=== PATIENT | female | born 1925 | race Caucasian/White ===

== ENCOUNTER → 2016-07-10 | Outpatient (CLI) | payer OTHER | LOC: BMCIMAGING 10:51 | PROVIDERS: ATTEND Internal Medicine | DX: M25.551 Pain in right hip (principal); M16.0 Bilateral primary osteoarthritis of hip; M43.16 Spondylolisthesis, lumbar region; R05 Cough ==

== ENCOUNTER → 2016-12-05 | Outpatient (CLI) | payer OTHER | LOC: BMCIMAGING 14:20 | PROVIDERS: ATTEND Internal Medicine | DX: R05 Cough (principal); R06.02 Shortness of breath; R91.8 Other nonspecific abnormal finding of lung field ==

== ENCOUNTER 2016-12-31 18:02 | Emergency (ER) | payer OTHER ==
[2016-12-31 18:13] VITALS: BP 163/85; PULSE 77; RESP 16; TEMP 97.7; O2SAT 96
--- NOTE | 2016-12-31 18:34 | EDPHY ---
H & P Stated Complaint: head lac HPI/ROS: CHIEF COMPLAINT: Scalp laceration HISTORY OF PRESENT ILLNESS: Patient reports by EMS with complaints of posterior scalp laceration. She says that she was trying to help a friend at her residence who had just fallen and injured the leg. When she did so the door closed head on the back of her head. She sustained a laceration when this occurred. No loss of consciousness. She now has no headache or neck pain. She reports moderate bleeding from the laceration. There is no injury anywhere else on her person. No nausea or vomiting. No dizziness. No change in vision. She does take aspirin but no other anticoagulants. No other associated complaints or modifying factors TIME OF INJURY: Less than 1 hour prior to arrival TETANUS STATUS: Up-to-date less than 10 years ago REVIEW OF SYSTEMS: Ten systems reviewed and are negative unless otherwise noted in the HPI EXAMINATION General Appearance: Alert, no distress Head: normocephalic. There is an occipital scalp laceration with clotted blood surrounded. No pulsatile blood flow. No Bolanos sign. No raccoon eyes. Cardiovascular: Pulses normal throughout. Brisk cap refill. Systolic murmur. Regular rate rhythm. Neurological: GCS 15. A&O, no focal deficits. sensory symmetric, strength symmetric Skin: Warm and dry, no rash. Posterior scalp laceration measuring approximately 3.5 cm. No exposure of the galea. Actively bleeding Extremities: Nontender, no pedal edema. Range of motion is symmetric in all limbs. DIFFERENTIAL DIAGNOSES: Including but not limited to scalp laceration, intracranial hemorrhage, fracture , contusion, cervical sprain, cervical fracture MDM: 6:20 p.m. Mechanical trauma to the back of the head with posterior scalp laceration. No obvious injury elsewhere. Given the patient's age and injury, order CT scans of the head and cervical spine. She is in no acute distress. She is neuro intact. 7:00 p.m. Notified by ER die maintenance technician that the wound appears to have a small area pulsatile blood flow. I did examine the wound. The scalp does have a very small, superficial capillary area of bleeding. This is easily hemostasis with pressure but than rebleed when released. I have administered 1% lidocaine with epinephrine, 5 mL as. We will irrigate and re-evaluate. 7:05 p.m. Notified by radiologist Dr. Mcgovern regarding CT scans. There are chronic changes of the head and cervical spine but no acute findings. 7:35 p.m. Wound has been copiously irrigated. There is still moderate bleeding but no obvious pulsatile blood flow. I have closed the wound with 6 karri without complication. We will apply a dressing and monitor. 8:10 p.m. I have re-evaluated the patient. There does appear to be good hemostasis of the scalp laceration at this time. Hemoglobin is normal. She is awake and alert no acute distress. CT scans are negative for acute findings. Do feel she is stable for discharge home. She will go back to her assisted living. She will follow up with primary care physician and return here or there in 10 days for staple removal. ED precautions discussed. She is comfortable this plan and discharged home stable condition. Her son is here with her and is driving her back to her residence. He is also comfortable this plan. PROCEDURE: Laceration repair Consent: Verbal Location: Occipital scalp Length of repair: Complexity: Complex Layer involvement: Single Anesthesia: Local, 1% lidocaine with epinephrine, 7 miles Irrigation: Extensive Debridement: None Procedure description: Following good anesthesia, the wound was copiously irrigated. Wound bed was explored and there is no foreign body noted. Wound borders were approximated well with good hemostasis. Tolerated well without complication. Suture/Staple material: Karri time 6 Wound care: Routine as discussed Suture/Staple removal: Days SUTURE STAPLE REMOVAL: Ten days ED Precautions: Worsening pain. Erythema, edema, cyanosis, pallor, paresthesia or anesthesia. SUPERVISION: This patient was independently evaluated without direct examination by the attending physician. Case was discussed with attending physician. 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, hypothyroid, restless leg syn., kidney stones, GERD, - Social History Smoking Status: Never smoked Constitutional: Initial Vital Signs Temperature (C) 97.7 F 12/31/16 18:11 Heart Rate 77 12/31/16 18:11 Respiratory Rate 16 12/31/16 18:11 Blood Pressure 163/85 H 12/31/16 18:11 O2 Sat (%) 96 12/31/16 18:11 O2 Delivery Mode Room Air Allergies/Adverse Reactions: diazepam [From Valium] Allergy (Verified 11/30/15 11:14) penicillin Allergy (Verified 11/30/15 11:14) Home Medications: Medication Instructions Recorded Ergocalciferol [Vitamin D2 (*)] 50,000 unit PO Q14D 12/06/14 LEVETIRACETAM [Keppra 750 mg] 750 mg PO DAILY 12/06/14 Levothyroxine [Synthroid 75 mcg 75 mcg PO DAILY06 12/06/14 (*)] Menthol/Camphor [Sarna] 1 isha TP HS PRN 12/06/14 PE/Shark Liver/Gly/Pet,Wh 1 isha MD PRN PRN 12/06/14 [Preparation H Cream (*)] Tears/Hypromellose [Natural 1 drop EACHEYE DAILY PRN 12/06/14 Balance] buPROPion SR [Wellbutrin 100mg SR 100 mg PO BID 12/06/14 (*)] rOPINIRole HCL [Requip 1mg (*)] 1 mg PO HS 12/06/14 Acetaminophen [Tylenol 325mg (*)] 650 mg PO Q4 PRN 03/10/15 Aspirin EC [Aspirin EC 81 mg (*)] 81 mg PO DAILY 03/10/15 Calcium Carbonate [Tums 500MG (*)] 500 mg PO Q4 PRN 03/10/15 Famotidine [Pepcid 20 MG (*)] 20 mg PO DAILY PRN 03/10/15 Propylene Glycol/Peg 400/Pf 1 each EACHEYE QID PRN 03/10/15 [Systane 0.3-0.4% Eye Drops] levETIRAcetam [Keppra 500 mg (*)] 500 mg PO HS 03/10/15 Ipratropium/Albuterol [Duoneb (*)] 3 ml IH QID #0 deyvial 04/11/16 Oseltamivir Phosphate [Tamiflu 30 mg PO BIDMEAL #0 ml 04/11/16 Oral Suspension] guaiFENesin [Mucinex 600 MG (*)] 1,200 mg PO BID #0 tab.er 04/11/16 guaiFENesin/CODEINE PHOS 10 ml PO Q6HRS PRN #0 udcup 04/11/16 [Robitussin AC] levOFLOXACIN [levAQUIN (*)] 750 mg PO Q48H #0 tab 04/11/16 Medical Decision Making - Diagnostics Imaging Results: Imaging Impressions Cervical Spine CT 12/31/16 18:16 Impression: 1. Elderly brain with diffuse atrophy and probable extensive white matter small vessel disease. 2. Negative for intracranial hemorrhage. 3. Left parieto-occipital scalp hematoma. CT Cervical Spine Without Contrast History: Trauma. Technique: Multislice helical CT through the cervical spine without contrast from the skull base to T1. Soft tissue and bone evaluation is performed. Sagittal and coronal reconstructions are obtained and reviewed. Dose reduction techniques were utilized. Findings: Straightening of the normal cervical curvature, otherwise, the bone alignment is normal.. No fracture or dislocation is identified. The relationship between skull base and C1 is normal. The C1-C2 articulation demonstrates degenerative changes with sclerosis and loss of space between the odontoid process and the anterior arch of C1. The odontoid process is normal. The cervical thoracic junction is normal. Soft tissue window evaluation does not show evidence of epidural or prevertebral hematoma. Multilevel spondylosis is seen with disk space loss and bony spurring extending from C2-C3 to the C7-T1 level. There is also multilevel facet and uncovertebral arthropathy resulting in multilevel neural foraminal impingement and multilevel borderline canal stenosis. There is interbody fusion at the C4-C5 level. Apical pleural thickening is seen at the lung apices bilaterally unchanged from CT of the chest April 08, 2016. Impression: 1. Negative for fracture. 2. Multilevel degenerative changes. 3. See above report for additional findings. Results called and discussed with Alessio Huffman on 12/31/2016 at 19:05. Head CT 12/31/16 18:16 Impression: 1. Elderly brain with diffuse atrophy and probable extensive white matter small vessel disease. 2. Negative for intracranial hemorrhage. 3. Left parieto-occipital scalp hematoma. CT Cervical Spine Without Contrast History: Trauma. Technique: Multislice helical CT through the cervical spine without contrast from the skull base to T1. Soft tissue and bone evaluation is performed. Sagittal and coronal reconstructions are obtained and reviewed. Dose reduction techniques were utilized. Findings: Straightening of the normal cervical curvature, otherwise, the bone alignment is normal.. No fracture or dislocation is identified. The relationship between skull base and C1 is normal. The C1-C2 articulation demonstrates degenerative changes with sclerosis and loss of space between the odontoid process and the anterior arch of C1. The odontoid process is normal. The cervical thoracic junction is normal. Soft tissue window evaluation does not show evidence of epidural or prevertebral hematoma. Multilevel spondylosis is seen with disk space loss and bony spurring extending from C2-C3 to the C7-T1 level. There is also multilevel facet and uncovertebral arthropathy resulting in multilevel neural foraminal impingement and multilevel borderline canal stenosis. There is interbody fusion at the C4-C5 level. Apical pleural thickening is seen at the lung apices bilaterally unchanged from CT of the chest April 08, 2016. Impression: 1. Negative for fracture. 2. Multilevel degenerative changes. 3. See above report for additional findings. Results called and discussed with Alessio Huffman on 12/31/2016 at 19:05. - Data Points Laboratory Results: 12/31/16 20:00 POC Hgb 15.6 gm/dL gm/dL (12.6-16.3) POC Hct 46 % % (38-47) POC Sodium 142 mEq/L mEq/L (134-144) POC Potassium 3.4 mEq/L mEq/L (3.3-5.0) POC Chloride 99 mEq/L mEq/L (97-110) POC BUN 23 mg/dL mg/dL (7-23) POC Creatinine 1.1 mg/dL H mg/dL (0.6-1.0) POC Glucose 103 mg/dL H mg/dL (70-100) Point of Care Test Results: 12/31/16 20:00 POC Sodium 142 POC Potassium 3.4 POC Chloride 99 POC BUN 23 POC Creatinine 1.1 H POC Glucose 103 H Departure - Departure Disposition: Home, Routine, Self-Care Clinical Impression: Hematoma Scalp laceration Qualifiers: Encounter type: initial encounter Qualified Code(s): S01.01XA - Laceration without foreign body of scalp, initial encounter Closed head injury Qualifiers: Encounter type: initial encounter Qualified Code(s): S09.90XA - Unspecified injury of head, initial encounter Condition: Good Instructions: Head Injury (ED), Staple Care (ED) Additional Instructions: 1. Follow up with primary care physician or here in 10 days for staple removal 2. Return to ER immediately for any change in your symptoms or any headache, nausea vomiting Referrals: Patient,NotPresent [Unknown] - As per Instructions Ana María Haas DO [Doctor of Osteopathy] - As per Instructions
[2016-12-31] MEDS ORDERED: HYDROGEN PEROXIDE 236 ML BOTTLE TP ONE (19:10)
== END 2016-12-31 20:46 | disposition home or self-care (01) ==
LOC: EDUNIT#
PROC: 0HQ0XZZ Repair Scalp Skin, External Approach (ICD-10-PCS; principal; 2016-12-31)
DX: S01.01XA Laceration without foreign body of scalp, initial encounter (principal); Z79.82 Long term (current) use of aspirin; W19.XXXA Unspecified fall, initial encounter; Y92.009 Unspecified place in unspecified non-institutional (private) residence as the place of occurrence of the external cause
CPT/HCPCS: 82947-QW

== ENCOUNTER → 2017-01-10 | Outpatient (CLI) | payer OTHER | LOC: BMCIMAGING 16:12 | PROVIDERS: ATTEND Internal Medicine | DX: J40 Bronchitis, not specified as acute or chronic (principal) ==

== ENCOUNTER 2017-02-14 11:05 | Emergency (ER) | payer OTHER ==
[2017-02-14 11:17] VITALS: RESP 18; TEMP 97.5
--- NOTE | 2017-02-14 11:32 | EDPHY ---
General Narrative: CHIEF COMPLAINT: Fall, head injury, scalp lack HISTORY OF PRESENT ILLNESS: Patient complains of mechanical fall at her residence. This happened just prior to arrival. She arrives by EMS and is seen within 10 minutes of arrival. She reports that she fell in her bathroom, landing on a ceramic tile floor. She struck the back of her head. She had no loss of consciousness before or after the incident. No chest pain before after the incident. No nausea or vomiting. No changes in vision. She complains of a mild headache and scalp laceration. No neck pain. No chest or back pain. No abdominal pain. No injuries to the arms or legs. No other associated complaints or modifying factors. REVIEW OF SYSTEMS: Ten systems reviewed and are negative unless otherwise noted in the HPI PAST MEDICAL HISTORY: Reviewed from [place] documents. PAST SURGICAL HISTORY: Reviewed. SOCIAL HISTORY: Nonsmoker. Lives at the [place] in assisted living. FAMILY HISTORY: Noncontributory EXAMINATION General Appearance: Alert, no distress Head: normocephalic, posterior scalp lac with non active bleeding. No depression. No Bolanos sign. No raccoon eyes. Dried blood about the scalp and around the neck Eyes: Pupils equal and round, no conjunctival pallor or injection ENT, Mouth: Mucous membranes moist. Uvula midline. Airway widely patent Neck: C-collar in place. Trachea midline. No laceration Respiratory: Lungs are clear to auscultation. No wheezing, rhonchi or crackles Cardiovascular: Regular rate and rhythm. No murmur Gastrointestinal: Abdomen is soft and nontender Back: non-tender, no bony abnormalities. No crepitus, step-off or deformity Neurological: GCS 15. A&O, nonfocal, strength symmetric in all barrera. No pronator drift. Normal [id number] Skin: Warm and dry, no rash. Posterior scalp laceration Extremities: Nontender, no pedal edema. Moving all 4 extremities spontaneously. No ecchymosis or laceration to the extremities. Psychiatric: Mood and affect normal DIFFERENTIAL DIAGNOSES: Including but not limited to closed head injury, scalp laceration, intracranial hemorrhage, skull fracture, cervical sprain, cervical fracture MDM: 11:25 a.m. Mechanical fall with closed head injury. Scalp laceration is described but not visualize due to C-collar. I have ordered CT scan of the head and cervical spine and then I will re-evaluate the laceration. She is awake alert no acute distress. No vomiting. No changes in vision. No blood thinners. CT scans of the head and cervical spine pending. 12:00 p.m. Patient re-evaluated. Resting comfortably. Awaiting CT scans. No acute distress 12:25 p.m. Contacted by radiologist Dr. Arias. CT scans of the head and cervical spine reveal no acute findings. Chronic changes as noted. Proceed with removal of C- collar to evaluate the laceration 1:00 p.m. Wound re-evaluated. There is a 5 cm laceration midline of the occiput. No involvement of the subcutaneous tissue or galea. No foreign body. Wound will be irrigated and closed. 1:25 p.m. Scalp laceration has been repaired with maryan. Tolerated well. She is awake and alert no acute distress. She has ambulated. We discussed follow up with primary care physician, daily wound care, staple removal in 10 days. She is comfortable this plan. Her son is currently with her bedside. He will be driving her back to her residence. ED precautions discussed PROCEDURE: Laceration repair Consent: Verbal Location: Scalp, occipital Length of repair: 5 cm Complexity: Simple Layer involvement: Single. No compromise of the galea Anesthesia: Local per 1% lidocaine without epinephrine. 7 mL Irrigation: Extensive Debridement: None Procedure description: Following good anesthesia, the wound was copiously irrigated. Wound bed was explored and there is no foreign body noted. No compromise of the galea Wound borders were approximated well with good hemostasis. Tolerated well without complication. Suture/Staple material: [place] x5 Wound care: Routine as discussed Suture/Staple removal: 10-14 Days - Diagnostics Imaging Results: Imaging Impressions Cervical Spine CT 02/14/17 11:27 Impression: 1. No acute abnormality seen about the cervical spine. No fracture. 2. 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 Findings discussed with Alessio Huffman at 12:30 hour, 02/14/2017. Head CT 02/14/17 11:27 Impression: 1. Stable moderate atrophy. 2. No hemorrhage, mass effect, or definite acute peripheral infarct. 3. Extensive stable nonspecific hypodensities in the white matter of bilateral cerebral hemispheres. Differential diagnosis includes microvascular ischemic disease, post-infectious/post-inflammatory sequela, atypical demyelinating disease, or migraine-related sequela. Small white matter lacunar infarcts may also have this appearance. If symptoms worsen, additional imaging may be necessary. Findings discussed with Alessio Huffman PAC at 12:29 hour, 02/14/2017. The - History Smoking Status: Never smoked - Objective Vital Signs: Initial Vital Signs Temperature (C) 97.5 F 02/14/17 11:13 Heart Rate 69 02/14/17 11:13 Respiratory Rate 18 02/14/17 11:13 Blood Pressure 148/97 H 02/14/17 11:13 O2 Sat (%) 86 L 02/14/17 11:13 O2 Delivery Mode Room Air Allergies/Adverse Reactions: diazepam [From Valium] Allergy (Verified 11/30/15 11:14) penicillin Allergy (Verified 11/30/15 11:14) Home Medications: Medication Instructions Recorded Ergocalciferol [Vitamin D2 (*)] 50,000 unit PO Q14D 12/06/14 LEVETIRACETAM [Keppra 750 mg] 750 mg PO DAILY 12/06/14 Levothyroxine [Synthroid 75 mcg 75 mcg PO DAILY06 12/06/14 (*)] Menthol/Camphor [Sarna] 1 isha TP HS PRN 12/06/14 PE/Shark Liver/Gly/Pet,Wh 1 isha DE PRN PRN 12/06/14 [Preparation H Cream (*)] Tears/Hypromellose [Natural 1 drop EACHEYE DAILY PRN 12/06/14 Balance] buPROPion SR [Wellbutrin 100mg SR 100 mg PO BID 12/06/14 (*)] rOPINIRole HCL [Requip 1mg (*)] 1 mg PO HS 12/06/14 Acetaminophen [Tylenol 325mg (*)] 650 mg PO Q4 PRN 03/10/15 Aspirin EC [Aspirin EC 81 mg (*)] 81 mg PO DAILY 03/10/15 Calcium Carbonate [Tums 500MG (*)] 500 mg PO Q4 PRN 03/10/15 Famotidine [Pepcid 20 MG (*)] 20 mg PO DAILY PRN 03/10/15 Propylene Glycol/Peg 400/Pf 1 each EACHEYE QID PRN 03/10/15 [Systane 0.3-0.4% Eye Drops] levETIRAcetam [Keppra 500 mg (*)] 500 mg PO HS 03/10/15 Ipratropium/Albuterol [Duoneb (*)] 3 ml IH QID #0 deyvial 04/11/16 Oseltamivir Phosphate [Tamiflu 30 mg PO BIDMEAL #0 ml 04/11/16 Oral Suspension] guaiFENesin [Mucinex 600 MG (*)] 1,200 mg PO BID #0 tab.er 04/11/16 guaiFENesin/CODEINE PHOS 10 ml PO Q6HRS PRN #0 udcup 04/11/16 [Robitussin AC] levOFLOXACIN [levAQUIN (*)] 750 mg PO Q48H #0 tab 04/11/16 Doxycycline Hyclate 100 mg PO BID #14 tab 01/21/17 predniSONE [predniSONE TAPER] 10 mg PO DAILY 6 Days ea 01/21/17 Departure - Departure Disposition: Home, Routine, Self-Care Clinical Impression: Scalp laceration Qualifiers: Encounter type: initial encounter Qualified Code(s): S01.01XA - Laceration without foreign body of scalp, initial encounter Closed head injury Qualifiers: Encounter type: initial encounter Qualified Code(s): S09.90XA - Unspecified injury of head, initial encounter Fall Qualifiers: Encounter type: initial encounter Qualified Code(s): W19.XXXA - Unspecified fall, initial encounter Condition: Good Instructions: Laceration (ED), Staple Care (ED) Additional Instructions: 1. Daily wound care as discussed 2. Follow up with primary care physician 3. ED precautions as discussed Referrals: Patient,NotPresent [Primary Care Provider] - As per Instructions Navneet Gaxiola MD [Medical Doctor] - As per Instructions Physician,Emergency Dept, [Medical Doctor] - As per Instructions (10 days for staple removal)
[2017-02-14 15:07] VITALS: BP 136/79; PULSE 68; O2SAT 90
== END 2017-02-14 15:06 | disposition home or self-care (01) ==
LOC: EDUNIT#
PROC: 0HQ0XZZ Repair Scalp Skin, External Approach (ICD-10-PCS; principal; 2017-02-14)
DX: S01.01XA Laceration without foreign body of scalp, initial encounter (principal); Z79.82 Long term (current) use of aspirin; W18.09XA Striking against other object with subsequent fall, initial encounter

== ENCOUNTER 2017-02-22 19:26 | Emergency (ER) | payer OTHER ==
[2017-02-22 19:43] VITALS: PULSE 81; TEMP 98.2
--- NOTE | 2017-02-22 20:00 | CPEKG ---
Heart Rate: 77 RR Interval: 779 P-R Interval: 180 QRSD Interval: 90 QT Interval: 376 QTC Interval: 426 P [place]: 48 QRS [place]: -12 T Wave [place]: 24 EKG Severity - NORMAL ECG - EKG Impression: SINUS RHYTHM Electronically Signed By: Barbara Hsu 22-Feb-2017 23:09:00
--- NOTE | 2017-02-22 20:32 | EDPHY ---
H & P Stated Complaint: difficulty speaking and sob as she began to stand up, hx of sz HPI/ROS: CHIEF COMPLAINT: Weakness, inability to speak HISTORY OF PRESENT ILLNESS: This patient is an 89 year old female arriving via EMS complaining of an episode of inability to speak upon waking and subsequent generalized weakness. She has history of seizures and believes her symptoms are related to a seizure. She takes Keppra 500mg/750mg BID. She does take her medication as prescribed including last night and this morning. She was evaluated 02/14/17 for a mechanical fall and discharged home following evaluation and scalp laceration repair. She visited her primary care provider Dr. Lira yesterday. She woke up this morning and could not speak. She has history of seizures that were evaluated by neurology years ago. She states this is similar to her previous seizure. This is the third time that this has happened. She was finally able to get up but had a hard time walking because she felt very weak all over. The first time she had seizures, she also felt very poorly.Currently, she feels very tired. She lives independently at an assisted living facility. Staff at her assisted living facility wanted her to be evaluated but she did not wish to come in. She is a poor historian and I am unsure what happened between her symptoms this morning and arrival late this evening. REVIEW OF SYSTEMS: A ten point review of systems was performed and is negative with the exception of the items mentioned in the HPI. She also notes chronic back pain and right radiculopathy Past medical history: 1. Seizure (Keppra BID) 2. Macular degeneration 3. Mitral valve prolapse 4. Hypothyroid 5. Restless leg syndrome 6. Kidney stones 7. GERD 8. Depression 9. Vision loss Past surgical history: 1. Back surgery Family history: Noncontributory. Social history: Lives at [facility]. Former access liaison. . General Appearance: Alert. Vital signs reviewed. Blood pressure 139/96. Head: The surgical maryan on occiput. Incision clean and dry. Eyes: Pupils equal and round, no conjunctival injection, no discharge. Anicteric. ENT, Mouth: Mucous membranes are moist, no oropharyngeal erythema or edema. Neck: No lymphadenopathy, supple. Respiratory: Lungs are clear to auscultation; no wheezes, rales, or rhonchi. Cardiovascular: Regular rate and rhythm; no murmur, rub, or gallop. Gastrointestinal: Abdomen is soft and nontender, no masses or organomegaly, bowel sounds normal. Skin: Warm and dry, no rashes on exposed skin, normal color. Back: Nontender to palpation over the thoracolumbar spine. No CVAT. Extremities: No lower extremity edema, no calf tenderness or swelling. Neurological: Alert and oriented to person, place, and year but confused about how long she has been in the department. Moving all four extremities easily and equally. Cranial nerves II through XII are examined and are intact the except for decreased hearing to finger rub (visual acuity not tested). Strength is symmetric bilaterally with testing of all major motor groups. Sensation is intact to light touch over all 4 extremities. [id number] is performed accurately. Psychiatric: Normal affect. - Personal History Tetanus Vaccine Date: < 10 years - Medical/Surgical History Hx Asthma: No Hx Chronic Respiratory Disease: No Hx Diabetes: No Hx Cardiac Disease: Yes Hx Renal Disease: No Hx Cirrhosis: No Hx Alcoholism: No Hx HIV/AIDS: No Hx Splenectomy or Spleen Trauma: No Other PMH: MACULAR DEGENERATION/MITRAL VALVE PROLAPSE/BACK SURGERY/SEIZURES, hypothyroid, restless leg syn., kidney stones, GERD, depression, vision loss. - Social History Smoking Status: Never smoked Constitutional: Initial Vital Signs Temperature (C) 36.8 C 02/22/17 19:39 Heart Rate 81 02/22/17 19:39 Respiratory Rate 18 02/22/17 19:39 Blood Pressure 139/96 H 02/22/17 19:39 O2 Sat (%) 95 02/22/17 19:39 O2 Delivery Mode Nasal Cannula O2 (L/minute) 2 Allergies/Adverse Reactions: diazepam [From Valium] Allergy (Verified 02/22/17 19:43) penicillin Allergy (Verified 02/22/17 19:43) Home Medications: Medication Instructions Recorded Ergocalciferol [Vitamin D2 (*)] 50,000 unit PO Q14D 12/06/14 LEVETIRACETAM [Keppra 750 mg] 750 mg PO DAILY 12/06/14 Levothyroxine [Synthroid 75 mcg 75 mcg PO DAILY06 12/06/14 (*)] Menthol/Camphor [Sarna] 1 isha TP HS PRN 12/06/14 PE/Shark Liver/Gly/Pet,Wh 1 isha RI PRN PRN 12/06/14 [Preparation H Cream (*)] Tears/Hypromellose [Natural 1 drop EACHEYE DAILY PRN 12/06/14 Balance] rOPINIRole HCL [Requip 1mg (*)] 1 mg PO HS 12/06/14 Acetaminophen [Tylenol 325mg (*)] 650 mg PO Q4 PRN 03/10/15 Aspirin EC [Aspirin EC 81 mg (*)] 81 mg PO DAILY 03/10/15 Calcium Carbonate [Tums 500MG (*)] 500 mg PO Q4 PRN 03/10/15 Famotidine [Pepcid 20 MG (*)] 20 mg PO DAILY PRN 03/10/15 Propylene Glycol/Peg 400/Pf 1 each EACHEYE QID PRN 03/10/15 [Systane 0.3-0.4% Eye Drops] levETIRAcetam [Keppra 500 mg (*)] 500 mg PO HS 03/10/15 Medical Decision Making ED Course/Re-evaluation: 89 year old female presents following an episode of aphasia this morning and subsequent weakness. No focal neurological deficits on exam. She is alert and oriented but believes she has been in the emergency department since this morning. Reviewed ED visit and imaging results from 02/14/17. No acute processes noted at that time and she was discharged home in good condition following laceration repair. Plan for labs including CBC, BMP, Troponin. Labs unremarkable, Troponin negative. Reassessed patient. She continues to insist she has been here since this morning --for 12 hours. I discussed evaluation for stroke or TIA including CT. She is adamant that her earlier difficulty speaking was a seizure. I am not convinced of this and think that transient aphasia would be somewhat unusual for a seizure, although certainly not impossible. I also discussed the possibility of a subdural hematoma related to her fall last week. She declines further testing or treatment at this time and prefers to be discharged home. She states that if a neurosurgical process were discovered, she would not undergo any surgical procedure. Although she does seem confused about some of the events of the day, she is certainly able to verbalize her understanding of our conversation and the ramifications of not having further evaluation done tonight. She tells me that she thinks the medical profession over does it in terms of testing and treating. She notes that she is 89 years old and has lived a good life. I note that she was seen by her primary care physician yesterday. She brings those notes with her. Several of the issues that she brings up today--such as difficulty walking--were addressed by her PCP yesterday. She had a urinalysis done yesterday that was normal. Plan to discharge home back to her assisted living facility. Follow up and return precautions discussed. She understands that she can return at any time if she should decide she wishes further evaluation. The patient is comfortable with this plan. - Data Points Laboratory Results: Laboratory Results 02/22/17 21:00 02/22/17 21:00 02/22/17 02/22/17 21:00 21:00 WBC 6.04 10^3/uL 10^3/uL (3.80-9.50) RBC 4.09 10^6/uL L 10^6/uL (4.18-5.33) Hgb 12.2 g/dL L g/dL (12.6-16.3) Hct 38.1 % % (38.0-47.0) MCV 93.2 fL fL (81.5-99.8) MCH 29.8 pg pg (27.9-34.1) MCHC 32.0 g/dL L g/dL (32.4-36.7) RDW 14.2 % % (11.5-15.2) Plt Count 246 10^3/uL 10^3/uL (150-400) MPV 10.7 fL fL (8.7-11.7) Neut % (Auto) 72.0 % % (39.3-74.2) Lymph % (Auto) 16.9 % % (15.0-45.0) [place]ill % (Auto) 8.6 % % (4.5-13.0) Eos % (Auto) 1.7 % % (0.6-7.6) Baso % (Auto) 0.5 % % (0.3-1.7) Nucleat RBC Rel Count 0.0 % % (0.0-0.2) Absolute Neuts (auto) 4.35 10^3/uL 10^3/uL (1.70-6.50) Absolute Lymphs (auto) 1.02 10^3/uL 10^3/uL (1.00-3.00) Absolute Monos (auto) 0.52 10^3/uL 10^3/uL (0.30-0.80) Absolute Eos (auto) 0.10 10^3/uL 10^3/uL (0.03-0.40) Absolute Basos (auto) 0.03 10^3/uL 10^3/uL (0.02-0.10) Absolute Nucleated RBC 0.00 10^3/uL 10^3/uL (0-0.01) Immature Gran % 0.3 % % (0.0-1.1) Immature Gran # 0.02 10^3/uL 10^3/uL (0.00-0.10) Sodium 143 mEq/L mEq/L (134-144) Potassium 3.9 mEq/L mEq/L (3.5-5.2) Chloride 101 mEq/L mEq/L (97-110) Carbon Dioxide 29 mEq/l mEq/l (22-31) Anion Gap 13 mEq/L mEq/L (8-16) BUN 15 mg/dL mg/dL (7-23) Creatinine 0.9 mg/dL mg/dL (0.6-1.0) Estimated GFR 59 Glucose 80 mg/dL mg/dL (70-100) Calcium 9.2 mg/dL mg/dL (8.5-10.4) Troponin I < 0.012 ng/mL ng/mL (0.000-0.034) Departure - Departure Disposition: Home, Routine, Self-Care Clinical Impression: History of aphasia, Weakness Condition: Good Instructions: Weakness (ED) Additional Instructions: As we discussed, I am not sure what caused your difficulty talking this morning. This is somewhat unusual for seizure. I am worried that this could have been a mini-stroke. It is fine if you do not want to have this further evaluated. If you change your mind or if you have further episodes when you can 't talk, you can certainly return. If you develop headaches, worsening confusion, new concerning symptoms I recommend that you come back and let us repeat a CT scan to see if you have a slow bleed related to the fall that you had a week ago. Follow up with Dr. Lira. Let her know that you were here today. Referrals: Milli Lira MD [Primary Care Provider] - As per Instructions Physician Review and Approval Statement: 02/22/17 20:32 Portions of this note were transcribed by the medical detailist. I, Dr. Barbara Hsu, personally performed the history, physical exam, and medical decision- making; and confirmed the accuracy of the information in the transcribed note.
[2017-02-22 21:19] LABS: % IMMATURE GRANULYOCYTES 0.3 % (0.0-1.1); ABSOLUTE IMMATURE GRANULOCYTES 0.02 10^3/uL (0.00-0.10); ADD DIFF? NO; ADD MORPH? NO; ADD SCAN? NO; ATYPICAL LYMPHOCYTE FLAG 10 (0-99); FRAGMENT RBC FLAG 0 (0-99); HEMATOCRIT 38.1 % (38.0-47.0); HEMOGLOBIN 12.2 g/dL (12.6-16.3); LEFT SHIFT FLG 10 (0-99); LIPEMIA HEMOLYSIS FLAG 80 (0-99); MEAN CELL HEMOGLOBIN 29.8 pg (27.9-34.1); MEAN CELL VOLUME 93.2 fL (81.5-99.8); MEAN PLATELET VOLUME 10.7 fL (8.7-11.7); PLATELET CLUMPS FLAG 10 (0-99); PLATELET COUNT 246 10^3/uL (150-400); RED BLOOD CELL COUNT 4.09 10^6/uL (4.18-5.33); RED CELL DISTRIBUTION WIDTH 14.2 % (11.5-15.2)
[2017-02-22 21:24] LABS: ANION GAP 13 mEq/L (8-16); CALCIUM 9.2 mg/dL (8.5-10.4); CARBON DIOXIDE 29 mEq/l (22-31); CHLORIDE 101 mEq/L (97-110); CREATININE 0.9 mg/dL (0.6-1.0); GLOMERULAR FILTRATION RATE 59; GLUCOSE 80 mg/dL (70-100); POTASSIUM 3.9 mEq/L (3.5-5.2); SODIUM 143 mEq/L (134-144)
[2017-02-22 21:35] LABS: TROPONIN I < 0.012 ng/mL (0.000-0.034)
[2017-02-22 23:58] VITALS: BP 121/65; RESP 20; O2SAT 91
== END 2017-02-23 00:14 | disposition home or self-care (01) ==
LOC: EDUNIT#
DX: R53.1 Weakness (principal); Z79.82 Long term (current) use of aspirin; Z87.898 Personal history of other specified conditions